=== PATIENT | female | born 1950 | race Caucasian/White ===

== ENCOUNTER 2017-02-07 07:15 | Outpatient (CLI) | payer MEDICARE ==
--- NOTE | 2017-02-10 17:00 | Mammography Report ---
DIGITAL SCREENING MAMMOGRAM: 02/07/2017 CLINICAL INDICATION: A 66-year-old with history of late childbearing, history of benign biopsies for screening. COMPARISON: 12/2010, 01/2010, 11/2008, 11/2007, 10/2006 TECHNIQUE: Routine CC and MLO projections were obtained of the breasts as well as bilateral laterall y exaggerated craniocaudal views. FINDINGS: The breasts again demonstrate heterogeneously dense fibroglandular parenchyma bilaterally. Post-biopsy changes in the left breast are stable. Coarse and punctate, typically benign calcifica tions are present. No suspicious masses, clustered microcalcifications, or regions of architectural distortion are identified IMPRESSION: BENIGN FINDINGS. RECOMMENDATION: Routine annual screening unless otherwise clinically indicated. BIRADS CATEGORY 2- BENIGN FINDINGS. STANDARD QUALIFYING STATEMENTS 1. This examination was reviewed with the aid of Computer-Aided Detection (CAD). 2. A negative or benign imaging report should not delay biopsy if clinically suspicious findings are present. Consider surgical consultation if warranted. More than 5% of cancers are not identified by i maging. 3. Dense breasts may obscure an underlying neoplasm. JOB #: [id number] EXT JOB #:[id number]
== END 2017-02-07 07:16 | disposition home or self-care (01) ==
LOC: DI 07:15
PROVIDERS: ATTEND Family Medicine
DX: Z12.31 Encounter for screening mammogram for malignant neoplasm of breast (principal)
CPT/HCPCS: 77067

== ENCOUNTER 2019-05-21 07:53 | Outpatient (CLI) | payer MEDICARE ==
--- NOTE | 2019-05-26 18:06 | Mammography Report ---
Reason: SCREENING MAMMO Procedure Date: 05/21/2019 Accession Number: [id number] / [id number] Procedure: CARLOS - Screening Mammo w/Trev CPT Code: Final Report FULL RESULT: EXAM: Screening Mammo w/Trev DATE: 05/21/2019 8:30 AM CLINICAL HISTORY: Screening encounter. History of late childbearing. History of excisional left breast biopsy with benign pathology results. TECHNIQUE: (B) - Bilateral CC and MLO views were obtained. Left laterally exaggerated CC views obtained. COMPARISON: 02/07/2017 through 02/02/2010. PARENCHYMAL PATTERN: (D) - The breast(s) demonstrate(s) heterogeneously dense fibroglandular parenchyma. FINDINGS: There are typically benign calcifications. Post excisional changes in the left breast are again seen, typically benign. There are no suspicious masses, calcifications, or areas of distortion. IMPRESSION: Benign findings. BI-RADS category 2. RECOMMENDATION: (ANNUAL) - Recommend routine annual screening mammography. BI-RADS CATEGORY: (2) - Benign Findings. STANDARD QUALIFYING STATEMENTS: 1. This examination was not reviewed with the aid of Computer-Aided Detection (CAD). 2. A negative or benign imaging report should not preclude biopsy if clinically suspicious findings are present. 3. Dense breasts may obscure an underlying neoplasm. 4. This examination was reviewed with the aid of 3D breast imaging (tomosynthesis).
== END 2019-05-21 07:54 | disposition home or self-care (01) ==
LOC: MERGE 07:53 → DI 07:53
DX: Z12.31 Encounter for screening mammogram for malignant neoplasm of breast (principal)
CPT/HCPCS: 77063; 77067

== ENCOUNTER 2019-05-21 07:54 | Outpatient (CLI) | payer MEDICARE ==
--- NOTE | 2019-05-26 18:10 | DEXA Report ---
Reason: POSTMENOPAUSAL Procedure Date: 05/21/2019 Accession Number: [id number] / [id number] Procedure: DEX - Dexa Spine and/or Hip CPT Code: Final Report FULL RESULT: EXAM: Dexa Spine and/or Hip DATE: 05/21/2019 8:26 AM CLINICAL HISTORY: POSTMENOPAUSAL TECHNIQUE: Dual energy x-ray absorptiometry (DXA) was performed on a [employer] System. Regions measured are the AP Spine, femoral neck, and if needed forearm. COMPARISON: None. In accordance with the International Society for Clinical Densitometry (ISCD) guidelines, data from previous exams may be reanalyzed using current recommendations and techniques. This is done to allow a more accurate basis for comparison with the current study. FINDINGS: The data for the lumbar spine is as follows: BMD (g/cm/cm) T-SCORE Z-SCORE REGION L1 0.901 -1.9 -0.3 L2 1.054 -1.2 0.4 L3 1.033 -1.4 0.2 L4 0.962 -2.0 -0.4 TOTAL 0.988 -1.6 0.0 NOTE: All evaluable vertebrae are used for classification The data for the hip is as follows: BMD (g/cm/cm) T-SCORE Z-SCORE REGION Neck 0.808 -1.7 -0.1 TOTAL 0.865 -1.1 0.2 NOTE: The femoral neck or total proximal femur, whichever is lowest, is used for classification. IMPRESSION: THE WHO CLASSIFICATION BASED ON THE INTERNATIONAL REFERENCE STANDARD IS OSTEOPENIA, REFERENCE LEFT FEMORAL NECK.. THE FRACTURE RISK IS INCREASED. RECOMMENDATION: Patients with diagnosis of osteoporosis or osteopenia should have regular bone mineral density assessment. For those eligible for Medicare, routine testing is allowed once every 2 years. Testing frequency can be increased for patients who have rapidly progressing disease or for those who are receiving medical therapy to restore bone mass. COMMENT: World Health Organization (WHO) definitions for osteoporosis and osteopenia: NORMAL BMD: T-score at -1.0 or higher, fracture risk is low OSTEOPENIA BMD: T-score between -1.0 and -2.5, fracture risk is increased. OSTEOPOROSIS BMD: T-score at -2.5 or lower, fracture risk is high. National Osteoporosis Foundation recommends: 1. Obtain adequate dietary calcium (at least 1200 mg per day) and vitamin D (400-800 international units per day). 2. Participate, as appropriate, in regular weightbearing and muscle-strengthening exercise. 3. Avoid tobacco use and reduce alcohol and caffeine intake. 4. For more detailed information see the website at www.NOF.org.
== END 2019-05-21 07:55 | disposition home or self-care (01) ==
LOC: MERGE 07:54 → DI 07:54
PROVIDERS: ATTEND Family Medicine
DX: M85.89 Other specified disorders of bone density and structure, multiple sites (principal); Z12.31 Encounter for screening mammogram for malignant neoplasm of breast
CPT/HCPCS: 77063; 77067; 77080

== ENCOUNTER 2019-07-19 10:56 | Emergency (ER) | payer MEDICARE ==
[2019-07-19 11:56] LABS: BASOPHILS # (AUTO) 0.1 10^3/uL (0.0-0.1); BASOPHILS % (AUTO) 0.6 %; EOSINOPHILS # (AUTO) 0.1 10^3/uL (0.0-0.7); EOSINOPHILS % (AUTO) 0.6 %; HGB - HEMOGLOBIN 15.7 g/dL (12.0-16.0); LYMPHOCYTES # (AUTO) 1.4 10^3/uL (1.5-3.5); MEAN CORPUSCULAR HEMOGLOBIN 32.6 pg (27.0-31.0); MEAN CORPUSCULAR HGB CONC 34.6 g/dL (32.0-36.0); MEAN CORPUSCULAR VOLUME 94.4 fL (81.0-99.0); MEAN PLATELET VOLUME 9.9 fL (7.9-10.8); MONOCYTES # (AUTO) 0.7 10^3/uL (0.0-1.0); MONOCYTES % (AUTO) 6.8 %; NEUTROPHILS # (AUTO) 8.2 10^3/uL (1.5-6.6); NEUTROPHILS % (AUTO) 78.6 %; PLT - PLATELET COUNT 217 10^3/uL (130-450); RED BLOOD COUNT 4.81 10^6/uL (4.20-5.40); RED CELL DISTRIBUTION WIDTH 12.5 % (12.0-15.0); WHITE BLOOD COUNT 10.5 x10^3/uL (4.8-10.8)
[2019-07-19] MEDS ORDERED: SODIUM CHLORIDE 0.9% 1,000 ML IV ONE (12:00)
[2019-07-19 12:10] LABS: ALBUMIN 5.1 g/dL (3.2-5.5); ALBUMIN/GLOBULIN RATIO 1.6 (1.0-2.2); BILIRUBIN,TOTAL 0.9 mg/dL (0.2-1.0); CREATININE 0.8 mg/dL (0.4-1.0); TOTAL PROTEIN 8.2 g/dL (6.7-8.2)
[2019-07-19 13:24] LABS: BILIRUBIN,URINE NEGATIVE (NEGATIVE); GLUCOSE, URINE (UA) NEGATIVE (NEGATIVE); KETONES,URINE (UA) NEGATIVE (NEGATIVE); LEUKOCYTE ESTERASE, URINE NEGATIVE (NEGATIVE); NITRITE,URINE NEGATIVE (NEGATIVE); OCCULT BLOOD,URINE TRACE-INTA (NEGATIVE); PROTEIN,URINE NEGATIVE (NEGATIVE); UROBILINOGEN,URINE 0.2 (NORMAL) E.U./dL (NORMAL)
[2019-07-19 13:26] LABS: CLARITY,URINE CLEAR (CLEAR)
[2019-07-19 14:43] VITALS: BP 104/87
--- NOTE | 2019-07-19 15:03 | ED Physician Documentation ---
PD HPI ABD PAIN - Stated complaint Stated Complaint: CHEST PX - Chief complaint Chief Complaint: Abd Pain - History obtained from History obtained from: Patient - History of Present Illness Timing - onset: Today (Just prior to arrival) Timing - details: Abrupt onset Quality: Pain Location: All over / everywhere Associated symptoms: Nausea, Vomiting, Diarrhea, Dizzy. No: Fever, Dysuria, Hematuria, Chest pain, Near syncope / syncope Similar symptoms before: Has not had sx before Recently seen: Not recently seen - Additional information Additional information: There is a 68-year-old woman who presents with her complaints that they were packing for a trip when she suddenly just broke out in this cold sweat and was very nauseous. She went sat down on the couch she was really lightheaded but did not pass out she put her head down so that she would not. Started to feel little bit better so she got up and her symptoms returned and she barely made it to the bathroom before she started vomiting and having "violent diarrhea to the point that she was incontinent. This was about 90 minutes prior to presentation and the vomiting and diarrhea just would not quit. She denied any abdominal pain. She did not eat anything that she thinks may have made her sick her and her shared a turkey sandwich. She was still dry heaving on the way here and was brought in by her . She says she was just very chilled and scared. Denied any chest pain palpitations. No headache. She was not ill prior to the onset of this. Review of Systems Constitutional: reports: Chills, Sweats. denies: Fever Eyes: denies: Loss of vision Nose: denies: Rhinorrhea / runny nose, Congestion Throat: denies: Sore throat Cardiac: denies: Chest pain / pressure, Palpitations Respiratory: denies: Dyspnea, Cough GI: reports: Nausea, Vomiting, Diarrhea. denies: Abdominal Pain : denies: Dysuria, Frequency Musculoskeletal: denies: Back pain Neurologic: reports: Generalized weakness, Near syncope. denies: Syncope, Headache, Head injury, LOC Endocrine: reports: Other (Patient is not a diabetic) PD PAST MEDICAL HISTORY - Allergies Allergies/Adverse Reactions: Allergies Allergy/AdvReac Type Severity Reaction Status Date / Time No Known Drug Allergies Allergy Verified 07/19/19 11:05 PD ED PE NORMAL - Vitals Vital signs reviewed: Yes - General General: Alert and oriented X 3, No acute distress, Well developed/nourished - HEENT HEENT: Atraumatic, PERRL, EOMI, Moist mucous membranes, Pharynx benign - Neck Neck: No adenopathy - Cardiac Cardiac: RRR, No murmur, Strong equal pulses - Respiratory Respiratory: No respiratory distress, Clear bilaterally - Abdomen Abdomen: Normal bowel sounds, Soft, Non distended, Other (She grimaces in pain with palpation diffusely.) - Derm Derm: Normal color, Warm and dry, No rash - Extremities Extremities: No edema - Neuro Neuro: Alert and oriented X 3, hospital mortician 2-12 intact, No motor deficit, No sensory deficit, Normal speech - Psych Psych: Normal mood, Normal affect Results - Vitals Vitals: Vital Signs - 24 hr 07/19/19 07/19/19 07/19/19 11:06 12:30 14:23 Temperature 36.5 C Heart Rate 84 65 74 Respiratory 22 14 18 Rate Blood Pressure 116/99 H 110/60 103/66 O2 Saturation 99 93 99 07/19/19 14:42 Temperature Heart Rate 79 Respiratory 16 Rate Blood Pressure 104/87 H O2 Saturation 97 Oxygen O2 Source Room air - EKG (time done) 1104 Rate: Rate (enter#) (77) Rhythm: NSR, Other (PVCs) Intervals: No: Wide QRS Ischemia: Normal ST segments Compare to prior EKG: Old EKG unavailable - Labs Labs: Laboratory Tests 07/19/19 07/19/19 07/19/19 11:21 11:40 11:40 WBC 10.5 RBC 4.81 Hgb 15.7 Hct 45.4 MCV 94.4 MCH 32.6 H MCHC 34.6 RDW 12.5 Plt Count 217 MPV 9.9 Neut # (Auto) 8.2 H Lymph # (Auto) 1.4 L [place] # (Auto) 0.7 Eos # (Auto) 0.1 Baso # (Auto) 0.1 Absolute Nucleated RBC 0.00 Nucleated RBC % 0.0 Sodium 139 Potassium 3.7 Chloride 104 Carbon Dioxide 23 Anion Gap 12.0 BUN 13 Creatinine 0.8 Estimated GFR (MDRD) 71 L Glucose 123 H POC Whole Bld Glucose 125 H Calcium 10.0 Total Bilirubin 0.9 AST 26 ALT 22 Alkaline Phosphatase 57 Troponin I High Sens Total Protein 8.2 Albumin 5.1 Globulin 3.1 Albumin/Globulin Ratio 1.6 Lipase 39 Urine Color Urine Clarity Urine pH Ur Specific [place] Urine Protein Urine Glucose (UA) Urine Ketones Urine Occult Blood Urine Nitrite Urine Bilirubin Urine Urobilinogen Ur Leukocyte Esterase Ur Microscopic Review Urine Culture Comments 07/19/19 07/19/19 11:40 13:10 WBC RBC Hgb Hct MCV MCH MCHC RDW Plt Count MPV Neut # (Auto) Lymph # (Auto) [place] # (Auto) Eos # (Auto) Baso # (Auto) Absolute Nucleated RBC Nucleated RBC % Sodium Potassium Chloride Carbon Dioxide Anion Gap BUN Creatinine Estimated GFR (MDRD) Glucose POC Whole Bld Glucose Calcium Total Bilirubin AST ALT Alkaline Phosphatase Troponin I High Sens < 2.3 L Total Protein Albumin Globulin Albumin/Globulin Ratio Lipase Urine Color YELLOW Urine Clarity CLEAR Urine pH 6.0 Ur Specific [place] 1.015 Urine Protein NEGATIVE Urine Glucose (UA) NEGATIVE Urine Ketones NEGATIVE Urine Occult Blood TRACE-INTA Urine Nitrite NEGATIVE Urine Bilirubin NEGATIVE Urine Urobilinogen 0.2 (NORMAL) Ur Leukocyte Esterase NEGATIVE Ur Microscopic Review NOT INDICATED Urine Culture Comments NOT INDICATED PD MEDICAL DECISION MAKING - ED course Complexity details: reviewed results, re-evaluated patient, d/w patient, d/w family ED course: Labs were normal. Normal troponin. Urinalysis was negative. Patient was given Zofran IV and a liter of fluids and on reevaluation she said she was feeling much better and ready to go home. Reevaluation of her abdomen soft nontender no guarding. No indication that she has a surgical abdomen at this time. She is had no emesis or diarrhea here. She was able to tolerate fluids. They plan to delay their trip by a day. Follow-up as needed. Departure - Departure Disposition: Home, Self Care Clinical Impression: Vomiting Qualifiers: Vomiting type: unspecified Vomiting Intractability: unspecified Nausea presence: with nausea Qualified Code(s): R11.2 - Nausea with vomiting, unspecified Diarrhea Qualifiers: Diarrhea type: unspecified type Qualified Code(s): R19.7 - Diarrhea, unspecified Condition: Good Instructions: ED Diet Vomiting Diarrhea Follow-Up: Ivett Landry DO [Primary Care Provider] - Comments: [place] diet until feeling better. Return to the emergency department if you have recurrent symptoms, develop chest or abdominal pain, feel dizzy or pass out. Discharge Date/Time: 07/19/19 15:13
== END 2019-07-19 15:13 | disposition home or self-care (01) ==
LOC: ED 10:56
DX: R11.2 Nausea with vomiting, unspecified (principal); R19.7 Diarrhea, unspecified; I49.3 Ventricular premature depolarization
CPT/HCPCS: 36415; 80053; 81001; 81003; 83690; 84484; 85025; 87086; 93005; 96360; 99284

== ENCOUNTER 2019-07-29 08:12 | Day surgery (SDC) | payer MEDICARE ==
[~2019-07-29 08:12] MED LIST: SODIUM/POTASSIUM/MAG SULFATES 354 ML PREP KIT PO SCH
[2019-07-29] MEDS ORDERED: MIDAZOLAM 2 MG/2 ML VIAL IVP ONE (08:13)
[2019-07-29] MEDS ORDERED: fentaNYL 250 MCG/5 ML VIAL IVP ONE (08:13)
[2019-07-29] MEDS ORDERED: LACTATED RINGERS 1,000 ML IV ONE (08:46)
[2019-07-29 12:01] VITALS: BP 105/52
== END 2019-07-29 08:13 | disposition home or self-care (01) ==
LOC: SDS 08:12
PROVIDERS: ATTEND Surgery
PROC: 0DBL8ZZ Excision of Transverse Colon, Via Natural or Artificial Opening Endoscopic (ICD-10-PCS; 2019-07-29)
PROC: 0DBM8ZZ Excision of Descending Colon, Via Natural or Artificial Opening Endoscopic (ICD-10-PCS; principal; 2019-07-29 09:45)
DX: Z12.11 Encounter for screening for malignant neoplasm of colon (principal); D12.3 Benign neoplasm of transverse colon; K63.5 Polyp of colon; K57.30 Diverticulosis of large intestine without perforation or abscess without bleeding; K64.8 Other hemorrhoids; I10 Essential (primary) hypertension; F17.200 Nicotine dependence, unspecified, uncomplicated; Z79.899 Other long term (current) drug therapy; Z80.0 Family history of malignant neoplasm of digestive organs

== ENCOUNTER 2020-06-27 07:00 | Outpatient (CLI) | payer MEDICARE ==
[2020-06-27 18:33] LABS: BASOPHILS % (AUTO) 0.4 %; EOSINOPHILS # (AUTO) 0.1 10^3/uL (0.0-0.7); EOSINOPHILS % (AUTO) 0.9 %; HGB - HEMOGLOBIN 13.9 g/dL (12.0-16.0); LYMPHOCYTES # (AUTO) 2.3 10^3/uL (1.5-3.5); MEAN CORPUSCULAR HEMOGLOBIN 32.4 pg (27.0-31.0); MEAN CORPUSCULAR HGB CONC 33.2 g/dL (32.0-36.0); MEAN CORPUSCULAR VOLUME 97.7 fL (81.0-99.0); MEAN PLATELET VOLUME 10.2 fL (7.9-10.8); MONOCYTES # (AUTO) 0.5 10^3/uL (0.0-1.0); MONOCYTES % (AUTO) 6.9 %; NEUTROPHILS # (AUTO) 4.9 10^3/uL (1.5-6.6); NEUTROPHILS % (AUTO) 62.4 %; PLT - PLATELET COUNT 220 10^3/uL (130-450); RED BLOOD COUNT 4.29 10^6/uL (4.20-5.40); RED CELL DISTRIBUTION WIDTH 12.9 % (12.0-15.0); WHITE BLOOD COUNT 7.8 x10^3/uL (4.8-10.8)
[2020-06-27 18:54] LABS: ALBUMIN 4.4 g/dL (3.2-5.5); ALBUMIN/GLOBULIN RATIO 1.6 (1.0-2.2); ALKALINE PHOSPHATASE 53 IU/L (42-121); ALT ALANINE AMINOTRANSFERASE 12 IU/L (10-60); AST ASPARTATE AMINOTRANSFERASE 16 IU/L (10-42); BILIRUBIN,TOTAL 0.7 mg/dL (0.2-1.0); BUN - BLOOD UREA NITROGEN 12 mg/dL (6-20); CALCIUM 9.4 mg/dL (8.5-10.3); CARBON DIOXIDE - CO2 26 mmol/L (21-32); CHLORIDE 103 mmol/L (101-111); CHOL/HDL RATIO 6.2 (<4.4); CHOLESTEROL 242 mg/dL; CREATININE 0.7 mg/dL (0.4-1.0); GLUCOSE 86 mg/dL (70-100); HDL CHOLESTEROL 39 mg/dL; LDL CHOLESTEROL,CALCULATED 182 mg/dL; LDL/HDL RATIO 4.7 (<4.4); SODIUM 140 mmol/L (135-145); TOTAL PROTEIN 7.2 g/dL (6.7-8.2); VLDL CHOLESTEROL 21 mg/dL
== END 2020-06-27 23:59 | disposition home or self-care (01) ==
LOC: LAB.WCP 07:00
PROVIDERS: ATTEND Family Medicine
DX: I10 Essential (primary) hypertension (principal)
CPT/HCPCS: 36415; 80053; 80061; 83721; 85025

== ENCOUNTER 2020-08-30 08:00 | Outpatient (CLI) | payer MEDICARE ==
[2020-08-30 18:45] LABS: CHOLESTEROL 198 mg/dL; HDL CHOLESTEROL 40 mg/dL; LDL CHOLESTEROL,CALCULATED 142 mg/dL; LDL/HDL RATIO 3.6 (<4.4); VLDL CHOLESTEROL 16 mg/dL
== END 2020-08-30 23:59 | disposition home or self-care (01) ==
LOC: LAB.WCP 08:00
PROVIDERS: ATTEND Family Medicine
DX: E78.5 Hyperlipidemia, unspecified (principal)
CPT/HCPCS: 36415; 80061; 83721

== ENCOUNTER 2021-05-21 10:59 | Outpatient (CLI) | payer MEDICARE ==
[2021-05-21 18:40] LABS: ALBUMIN 4.7 g/dL (3.2-5.5); ALBUMIN/GLOBULIN RATIO 1.6 (1.0-2.2); ALKALINE PHOSPHATASE 54 IU/L (42-121); ALT ALANINE AMINOTRANSFERASE 21 IU/L (10-60); AST ASPARTATE AMINOTRANSFERASE 21 IU/L (10-42); BILIRUBIN,TOTAL 0.9 mg/dL (0.2-1.0); BUN - BLOOD UREA NITROGEN 11 mg/dL (6-20); CALCIUM 9.8 mg/dL (8.5-10.3); CARBON DIOXIDE - CO2 29 mmol/L (21-32); CHLORIDE 105 mmol/L (101-111); CHOL/HDL RATIO 5.3 (<4.4); CHOLESTEROL 243 mg/dL; CREATININE 0.7 mg/dL (0.4-1.0); GFR - MDRD 83 (>89); GLUCOSE 87 mg/dL (70-100); HDL CHOLESTEROL 46 mg/dL; LDL CHOLESTEROL,CALCULATED 174 mg/dL; LDL/HDL RATIO 3.8 (<4.4); POTASSIUM 4.1 mmol/L (3.5-5.0); SODIUM 143 mmol/L (135-145); TOTAL PROTEIN 7.7 g/dL (6.7-8.2); TRIGLYCERIDES 114 mg/dL; VLDL CHOLESTEROL 23 mg/dL
[2021-05-21 19:17] LABS: THYROID STIMULATING HORMONE 1.22 uIU/mL (0.34-5.60)
== END 2021-05-21 23:59 | disposition home or self-care (01) ==
LOC: LAB.WCP 10:59
PROVIDERS: ATTEND Family Medicine
DX: E78.5 Hyperlipidemia, unspecified (principal); I10 Essential (primary) hypertension; Z78.0 Asymptomatic menopausal state
CPT/HCPCS: 36415; 80053; 80061; 82306; 83721; 84443

== ENCOUNTER 2021-05-30 07:38 | Outpatient (CLI) | payer MEDICARE ==
--- NOTE | 2021-05-31 09:06 | Mammography Report ---
BILATERAL DIGITAL SCREENING MAMMOGRAM 3D/2D: 05/30/2021 CLINICAL: Routine screening. Comparison is made to exams dated: 05/21/2019 mammogram, 02/07/2017 mammogram, and 12/28/2010 mammogram - [facility]. The tissue of both breasts is heterogeneously dense. This may lower the sensitivity of mammography. No significant masses, calcifications, or other findings are seen in either breast. There has been no significant interval change. IMPRESSION: NEGATIVE There is no mammographic evidence of malignancy. A 1 year screening mammogram is recommended. This exam was interpreted at Station ID: [id number]. NOTE: For mammograms, a report in lay terms will be sent to the patient. Approximately 15% of breast malignancies will not be visualized mammographically. In the management of a palpable breast mass, a negative mammogram must not discourage biopsy of a clinically suspicious lesion. Electronically Signed By: Jimy Daniel M.D. slc/penrad:05/30/2021 09:30:02 ACR BI-RADS Category 1: Negative 3341F PARENCHYMAL PATTERN: (D) - The breast(s) demonstrate(s) heterogeneously dense fibroglandular arik nieves. BI-RADS CATEGORY: (1) - 1 RECOMMENDATION: (ANNUAL) - Recommend routine annual screening mammography. [id number] 1 year screening LATERALITY: (B)
== END 2021-05-30 07:39 | disposition home or self-care (01) ==
LOC: DI 07:38
DX: Z12.31 Encounter for screening mammogram for malignant neoplasm of breast (principal)

== ENCOUNTER 2022-05-27 00:35 | Emergency (ER) | payer MEDICARE ==
[2022-05-27 01:47] LABS: BASOPHILS % (AUTO) 0.2 %; EOSINOPHILS % (AUTO) 0.1 %; HCT - HEMATOCRIT 38.8 % (37.0-47.0); HGB - HEMOGLOBIN 13.1 g/dL (12.0-16.0); LYMPHOCYTES # (AUTO) 1.2 10^3/uL (1.5-3.5); LYMPHOCYTES % (AUTO) 13.8 %; MEAN CORPUSCULAR HEMOGLOBIN 31.7 pg (27.0-31.0); MEAN CORPUSCULAR HGB CONC 33.8 g/dL (32.0-36.0); MEAN CORPUSCULAR VOLUME 93.9 fL (81.0-99.0); MEAN PLATELET VOLUME 9.6 fL (7.9-10.8); MONOCYTES # (AUTO) 0.6 10^3/uL (0.0-1.0); MONOCYTES % (AUTO) 6.4 %; NEUTROPHILS # (AUTO) 6.8 10^3/uL (1.5-6.6); NEUTROPHILS % (AUTO) 79.3 %; PLT - PLATELET COUNT 160 10^3/uL (130-450); RED BLOOD COUNT 4.13 10^6/uL (4.20-5.40); RED CELL DISTRIBUTION WIDTH 12.7 % (12.0-15.0); WHITE BLOOD COUNT 8.5 x10^3/uL (4.8-10.8)
--- NOTE | 2022-05-27 02:09 | ED Physician Documentation ---
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 Patient was at home alone, at rest on couch, when she began to feel generalized weakness and lightheadedness. She then developed mild anterior chest discomfort, vague/nondescript. She called 911 and was advised to get out of the house due to concern for possible CO poisoning; this is because she just recently started using a generator due to being a ffected by the wide-spread power outage Danielle Comer is having past 2 days. She says she has been able to occasionally smell faint exhaust fumes from the generator. Fire department reportedly was on scene and carbon monoxide levels in the house were undetectable. When patient got out of her house as per 911 instruction, she continued to have generalized weakness, and she fell to ground due to BLE weakness although she denies LOC, denies any injury. Review of Systems Constitutional: denies: Fever, Chills, Myalgias Eyes: reports: Reviewed and negative Cardiac: reports: Chest pain / pressure. denies: Palpitations Respiratory: reports: Reviewed and negative GI: reports: Reviewed and negative Musculoskeletal: reports: Reviewed and negative Neurologic: reports: Generalized weakness (resolved by the time of this H+P), Near syncope. denies: Focal weakness, Numbness, Difficulty speaking, Syncope, Confused, Altered mental status, Headache, Head injury, LOC PD PAST MEDICAL HISTORY - Past Medical History Past Medical History: Yes Cardiovascular: Hypertension, High cholesterol - Present Medications Home Medications: Ambulatory Orders Medication Instructions Recorded Confirmed Felodipine [Felodipine ER] 10 mg PO DAILY 07/28/19 05/27/22 Lisinopril [Zestril] 20 mg PO DAILY 07/28/19 05/27/22 Mirtazapine 15 mg PO DAILY 07/28/19 05/27/22 Simvastatin 20 mg PO DAILY 07/28/19 05/27/22 OLANZapine [Olanzapine] 10 mg PO DAILY 05/27/22 05/27/22 - Allergies Allergies/Adverse Reactions: Allergies Allergy/AdvReac Type Severity Reaction Status Date / Time No Known Drug Allergies Allergy Verified 05/27/22 00:55 PD ED PE NORMAL - Vitals Vital signs reviewed: Yes - General General: No acute distress, Well developed/nourished, Other (asleep, awakens slowly to verbal with gentle tactile, answers are quiet and sometimes needs to have question repeated; however, oriented x 3 and answers are appropriate) - HEENT HEENT: Atraumatic, PERRL, EOMI, Moist mucous membranes - Neck Neck: Supple, no meningeal sign - Cardiac Cardiac: RRR, No murmur - Respiratory Respiratory: No respiratory distress, Clear bilaterally - Abdomen Abdomen: Soft - Derm Derm: Normal color, Warm and dry - Extremities Extremities: No edema - Neuro Neuro: Alert and oriented X 3, speech pathologist 2-12 intact, No motor deficit, No sensory deficit, Normal speech Eye Opening: To Voice Motor: Obeys Commands Verbal: Oriented GCS Score: 14 Results - Vitals Vitals: Oxygen O2 Source Room air Oxygen Flow Rate 15 - EKG (time done) No standard instances Rate: Rate (enter#) (74) Rhythm: NSR [place]: Normal Intervals: Normal MD, Wide QRS (NSIVCD) QRS: Normal Ischemia: Normal ST segments, Q waves (II, aVF) Computer interpretation: Disagree with computer (NSR , not atrial fibrillation) - Labs Labs: Laboratory Tests 05/27/22 05/27/22 05/27/22 01:40 01:40 01:40 WBC 8.5 RBC 4.13 L Hgb 13.1 Hct 38.8 MCV 93.9 MCH 31.7 H MCHC 33.8 RDW 12.7 Plt Count 160 MPV 9.6 Neut # (Auto) 6.8 H Lymph # (Auto) 1.2 L [place] # (Auto) 0.6 Eos # (Auto) 0.0 Baso # (Auto) 0.0 Absolute Nucleated RBC 0.00 Nucleated RBC % 0.0 VBG Total Hgb VBG Oxyhemoglobin VBG Carboxyhemoglobin VBG Methemoglobin Sodium 137 Potassium 3.5 Chloride 106 Carbon Dioxide 24 Anion Gap 7.0 BUN 15 Creatinine 0.7 Estimated GFR (MDRD) 82 L Glucose 166 H Calcium 9.4 Total Bilirubin 0.8 AST 20 ALT 13 Alkaline Phosphatase 68 Troponin I High Sens Total Protein 7.5 Albumin 4.4 Globulin 3.1 Albumin/Globulin Ratio 1.4 Lipase 34 TSH 1.46 05/27/22 05/27/22 01:40 02:35 WBC RBC Hgb Hct MCV MCH MCHC RDW Plt Count MPV Neut # (Auto) Lymph # (Auto) [place] # (Auto) Eos # (Auto) Baso # (Auto) Absolute Nucleated RBC Nucleated RBC % VBG Total Hgb 13.9 VBG Oxyhemoglobin 89 L VBG Carboxyhemoglobin 9.2 H VBG Methemoglobin 0.2 Sodium Potassium Chloride Carbon Dioxide Anion Gap BUN Creatinine Estimated GFR (MDRD) Glucose Calcium Total Bilirubin AST ALT Alkaline Phosphatase Troponin I High Sens 14.0 Total Protein Albumin Globulin Albumin/Globulin Ratio Lipase TSH PD MEDICAL DECISION MAKING - ED course Complexity details: reviewed results, re-evaluated patient, considered differential, d/w patient ED course: no remarkable findings on EKG, no concerning findings on CBC, ER abdominal panel; normal TSH, normal hs-cTn. Her carboxyhemoglobin (venous sample) is 9.3. She is a smoker, but she describes equivalent of less than a pack per day: she rolls her own cigarettes. When I ask her if she would estimates it comes out to an equivalent of one or two packs per day , she says she only smokes a few hand-rolled tobacco cigarettes per day. Thus, this would only account for small amount of the CO on venous sample. While the fire department reportedly had no CO detected on scene, she says she thinks she left the door open when she left the house, which might have allowed adequate ventilation to drop the CO level to undetectable level by the time it was checked by FD. However, the CO result on blood test is not high enough to indicate need for admission / transfer, particularly when considering she is asymptomatic (she is initially asleep and groggy as noted in my physical exam documentation), but ED RN says she was AAOx3 on arrival, and on reevaluation, she is clearly AAOx3; thus, she likely was tired due to the hour , as opposed to result of CO poisoning (symptoms would not improve on arrival, then worsen during ED stay). Given the CO is elevated on blood draw, 100% oxygen via NRB is administered for over two hours to increase elimination of CO. She is again reevaluated after this and she remains AAOx3, asymptomatic. She is comfortable with d/c home. I instructed her to not use the generator again until it can be professionally checked for leaks and to ensure that it is set up properly and in setting/location that allows for proper ventilation of the exhaust (including making sure the exhaust is not leaking into the house). Departure - Departure Disposition: 01 Home, Self Care Clinical Impression: Near syncope Condition: Good Instructions: ED Near Syncope Unkn Comments: The results of tonights tests are mostly unremarkable and nondiagnostic. This includes EKG and blood tests (including a cardiac blood test). Your carbon monoxide level was mildly elevated but not to an alarming extent; you were given high-flow oxygen for 2 hours, as this speeds up the elimination of the carbon monoxide. As we discussed, I would recommend not using the power generator again until it can be checked that it is working appropriately and that the exhaust is not leaking into the house. Follow up with your primary care provider regarding the low blood pressures and the sensation of nearly passing out. Discharge Date/Time: 05/27/22 08:22
[2022-05-27 02:13] LABS: ALBUMIN 4.4 g/dL (3.2-5.5); ALBUMIN/GLOBULIN RATIO 1.4 (1.0-2.2); BILIRUBIN,TOTAL 0.8 mg/dL (0.2-1.0); CALCIUM 9.4 mg/dL (8.5-10.3); CREATININE 0.7 mg/dL (0.4-1.0); POTASSIUM 3.5 mmol/L (3.5-5.0); TOTAL PROTEIN 7.5 g/dL (6.7-8.2)
[2022-05-27 02:40] LABS: CARBOXYHEMOGLOBIN VENOUS 9.2 % (0-1.5); HEMOGLOBIN TOTAL, VENOUS WB 13.9 g/dL (12.0-18.0); METHEMOGLOBIN VENOUS 0.2 % (0-1.5)
[2022-05-27] MEDS ORDERED: ONDANSETRON 4 MG/2 ML VIAL IVP STA (05:19)
[2022-05-27 08:00] VITALS: BP 116/65
== END 2022-05-27 08:22 | disposition home or self-care (01) ==
LOC: EDUNIT# → ED 00:35
DX: R55 Syncope and collapse (principal); I10 Essential (primary) hypertension; F17.200 Nicotine dependence, unspecified, uncomplicated
CPT/HCPCS: 36415; 80053; 82375; 83690; 84443; 84484; 85025; 93005; 99282; 99283

== ENCOUNTER 2023-02-13 13:31 | Outpatient (CLI) | payer MEDICARE ==
--- NOTE | 2023-02-14 09:22 | Mammography Report ---
BILATERAL DIGITAL SCREENING MAMMOGRAM 3D/2D: 02/13/2023 CLINICAL: Routine screening. Comparison is made to exams dated: 05/30/2021 mammogram, 05/21/2019 mammogram, and 02/07/2017 mammogra m - [facility]. Both breasts are heterogeneously dense, which may obscure small masses (category c / 51-75% glandular tissue). No significant masses, calcifications, or other findings are seen in either breast. There has been no significant interval change. IMPRESSION: NEGATIVE There is no mammographic evidence of malignancy. A 1 year screening mammogram is recommended. Based on the Tyrer Cuzick model (a risk assessment model) the patients lifetime risk is 8.6% and her 10 year risk is 6.4%. According to the ACR, ACS, and NCCN guidelines, an annual breast MRI exam francisco javier g with mammogram is recommended if the patients lifetime risk is 20% or greater. This exam was interpreted at Station ID: [id number]. NOTE: For mammograms, a report in lay terms will be sent to the patient. Approximately 15% of breast malignancies will not be visualized mammographically. In the management of a palpable breast mass, a negative mammogram must not discourage biopsy of a clinically suspicious lesion. Electronically Signed By: Todd leon/lois:02/13/2023 15:32:42 letter sent: No_Letter ACR BI-RADS Category 1: Negative 3341F PARENCHYMAL PATTERN: (D) - The breast(s) demonstrate(s) heterogeneously dense fibroglandular arik nieves. BI-RADS CATEGORY: (1) - 1 Mammogram [id number] 1 year screening LATERALITY: (B)
== END 2023-02-13 13:32 | disposition home or self-care (01) ==
LOC: DI 13:31
DX: Z12.31 Encounter for screening mammogram for malignant neoplasm of breast (principal)

== ENCOUNTER 2023-03-18 08:21 | Outpatient (CLI) | payer MEDICARE ==
--- NOTE | 2023-03-18 10:01 | DEXA Report ---
PROCEDURE: Dexa Spine and/or Hip INDICATIONS: POST MENOPAUSAL TECHNIQUE: Dual energy x-ray absorptiometry (DXA) was performed on a [employer] System. Regions measur ed are the AP Spine, femoral neck, and if needed forearm. COMPARISON: 05/21/2019 FINDINGS: Lumbar Spine: Bone Mineral Density 0.975 g/cm/cm,T score -1.7. There is interval 1.3% decrease in total lumbar spi ne bone mineral density. Left Femoral Neck: Bone Mineral Density 0.815 g/cm/cm, T score -1.6. Left Hip: Bone Mineral Density 0.876 g/cm/cm,T score -1.0. There is interval 1.3% increase in total left hip chriss ne mineral density. (T score greater or equal to -1.0: NORMAL) (T score from -1.1 to -2.4: OSTEOPENIA) (T score less than or equal to -2.5 to: OSTEOPOROSIS) Impression: By WHO criteria, this patient has osteopenia . Patients with diagnosis of osteoporosis or osteopenia should have regular bone mineral density assess ment. For those eligible for Medicare, routine testing is allowed once every 2 years. Testing frequ ency can be increased for patients who have rapidly progressing disease or for those who are receivin g medical therapy to restore bone mass. Reviewed by: Miquel Núñez MD on 03/18/2023 10:00 AM PDT Approved by: Miquel Núñez MD on 03/18/2023 10:00 AM PDT Station ID: [id number]
== END 2023-03-18 08:22 | disposition home or self-care (01) ==
LOC: DI 08:21
PROVIDERS: ATTEND Physician Assistant
DX: Z78.0 Asymptomatic menopausal state (principal); M85.80 Other specified disorders of bone density and structure, unspecified site

== ENCOUNTER 2023-10-27 12:02 | Outpatient (CLI) | payer MEDICARE ==
[2023-10-27 12:23] LABS: BASOPHILS % (AUTO) 0.5 %; EOSINOPHILS # (AUTO) 0.1 10^3/uL (0.0-0.7); EOSINOPHILS % (AUTO) 1.7 %; HCT - HEMATOCRIT 38.6 % (37.0-47.0); HGB - HEMOGLOBIN 13.6 g/dL (12.0-16.0); LYMPHOCYTES # (AUTO) 1.3 10^3/uL (1.5-3.5); LYMPHOCYTES % (AUTO) 22.6 %; MEAN CORPUSCULAR HEMOGLOBIN 32.7 pg (27.0-31.0); MEAN CORPUSCULAR HGB CONC 35.2 g/dL (32.0-36.0); MEAN CORPUSCULAR VOLUME 92.8 fL (81.0-99.0); MEAN PLATELET VOLUME 9.3 fL (7.9-10.8); MONOCYTES # (AUTO) 0.4 10^3/uL (0.0-1.0); MONOCYTES % (AUTO) 7.4 %; NEUTROPHILS % (AUTO) 67.6 %; PLT - PLATELET COUNT 213 10^3/uL (130-450); RED BLOOD COUNT 4.16 10^6/uL (4.20-5.40); RED CELL DISTRIBUTION WIDTH 12.4 % (12.0-15.0); WHITE BLOOD COUNT 5.9 x10^3/uL (4.8-10.8)
[2023-10-27 12:36] LABS: CREATININE,URINE 84.8 mg/dL; MICROALBUM/CREATININE RATIO,UR 179.2 ug/mg (<30.0); MICROALBUMIN,URINE 15.2 mg/dL
[2023-10-27 12:45] LABS: ALBUMIN 4.6 g/dL (3.2-5.5); ALBUMIN/GLOBULIN RATIO 1.6 (1.0-2.2); ALKALINE PHOSPHATASE 67 IU/L (42-121); ALT ALANINE AMINOTRANSFERASE 20 IU/L (10-60); AST ASPARTATE AMINOTRANSFERASE 17 IU/L (10-42); BILIRUBIN,TOTAL 0.7 mg/dL (0.2-1.0); BUN - BLOOD UREA NITROGEN 9 mg/dL (6-20); CALCIUM 10.1 mg/dL (8.5-10.3); CARBON DIOXIDE - CO2 29 mmol/L (21-32); CHLORIDE 104 mmol/L (101-111); CHOL/HDL RATIO 3.4 (<4.4); CHOLESTEROL 103 mg/dL; CREATININE 0.8 mg/dL (0.6-1.3); GFR - MDRD 71 (>89); GLUCOSE 148 mg/dL (74-104); HDL CHOLESTEROL 30 mg/dL; LDL CHOLESTEROL,CALCULATED 45 mg/dL; LDL/HDL RATIO 1.5 (<4.4); POTASSIUM 3.9 mmol/L (3.5-4.5); SODIUM 139 mmol/L (135-145); TOTAL PROTEIN 7.5 g/dL (6.4-8.9); TRIGLYCERIDES 142 mg/dL (48-352); VLDL CHOLESTEROL 28 mg/dL
[2023-10-27 12:48] LABS: ESTIMATED AVERAGE GLUCOSE 157 mg/dL (70-100); HEMOGLOBIN A1c% 7.1 % (4.27-6.07)
[2023-10-27 12:50] LABS: THYROID STIMULATING HORMONE 0.91 uIU/mL (0.34-5.60)
== END 2023-10-27 12:03 | disposition home or self-care (01) ==
LOC: LAB 12:02
PROVIDERS: ATTEND Nurse Practitioner
DX: I10 Essential (primary) hypertension (principal); E78.5 Hyperlipidemia, unspecified; E11.9 Type 2 diabetes mellitus without complications; R53.83 Other fatigue
CPT/HCPCS: 36415; 80053; 80061; 82043; 82570; 83036; 83721; 84443; 85025

== ENCOUNTER 2024-02-10 09:22 | Outpatient (CLI) | payer MEDICARE ==
[2024-02-10 10:03] LABS: ESTIMATED AVERAGE GLUCOSE 134 mg/dL (70-100); HEMOGLOBIN A1c% 6.3 % (4.27-6.07)
== END 2024-02-10 09:23 | disposition home or self-care (01) ==
LOC: LAB 09:22
PROVIDERS: ATTEND Nurse Practitioner
DX: E11.9 Type 2 diabetes mellitus without complications (principal)
CPT/HCPCS: 36415; 83036